=== PATIENT | male | born 1975 | race Caucasian/White ===

== ENCOUNTER 2019-09-21 14:16 | Emergency (ER) | payer OTHER ==
[~2019-09-21] VITALS: Ht 175.3 cm; Wt 81.6 kg
[2019-09-21 14:27] VITALS: BP 145/90
[2019-09-21 14:41] VITALS: BP 145/90
[2019-09-21] MEDS ORDERED: LIDOCAINE 1% VIAL ONE (14:54)
[2019-09-21] MEDS ORDERED: ADACEL VIAL IM ONE ×2 (15:24→15:30)
--- NOTE | 2019-09-21 15:24 | ER.PDOC ---
General Chief Complaint: Extremities Stated Complaint: LEFT HAND LAC Time seen by MD: 15:00 Source: patient Exam Limitations: no limitations History of Present Illness Initial Comments Pt states the top of his right hand was cut today on a piece of metal in a trash can one hour ago. Occurred: just prior to arrival Where: other Severity: moderate Modifying Factors: pain on movement Past Medical History Medical History: no pertinent history Surgical History: no surgical history Family History Significant Family History: other Social History Smoking: non-smoker Alcohol Use: none Drug Use: none Review of Systems Constitutional: no symptoms reported EENTM: no symptoms reported Respiratory: no symptoms reported Cardiovascular: no symptoms reported Gastrointestinal: no symptoms reported Genitourinary: no symptoms reported Musculoskeletal: no symptoms reported Skin: see HPI Psychiatric/Neurological: no symptoms reported All Other Systems: Reviewed and Negative Physical Exam General Appearance: Alert, Mild Distress Hand: see diagram Wrist: nml inspection, non-tender, nml ROM Forearm/Elbow: nml inspection, non-tender, nml ROM Arm/Shoulder: nml inspection, non-tender, nml ROM 1 - 2 cm laceration right hand dorsum side Neuro/Vasc/Tendon: sensation nml, motor nml, no vascular compromise Skin: warm/dry Head/ENT: nml inspection, pharynx nml Neck/Back: nml inspection, non-tender Respiratory: chest non-tender, breath sounds nml CVS: heart sounds normal Abdomen: non-tender, no organomegaly ED LACERATION WOUND REPAIR # of Wounds/Lacerations Presen: 1 Wound Location & Length (Requi: right hand dorsum side 2 cm Wound Length (cm): 2 Wound cleaned: hibiclens Anesthesia type: local Anesthesia: 1% Lidocaine Volume Anesthetic (ccs): 2 Wound's Depth, Shape: through and through Wound Explored: clean Tendon Intact: Yes Wound Debrided: moderate Wound Repaired With: sutures Suture Size/Type: 4:0, prolene Suture Style: interupted Number of Sutures: 5 Layer Closure?: Yes Sterile Dressing Applied?: Yes Results/Orders Results/Orders Orders - BEATRIZ CHOWDARY [employer] Diph,Pertuss(Acell),Tet Vac/Pf (Adacel V (09/21/19 15:30) Vital Signs Date Time Temp Pulse Resp B/P (MAP) Pulse Ox O2 Delivery O2 Flow Rate FiO2 09/21/19 15:35 98.5 77 16 96 09/21/19 14:41 98.5 89 16 96 09/21/19 14:41 98.5 89 16 96 09/21/19 14:27 98.5 89 16 96 09/21/19 14:27 98.5 89 16 Administered Medications Medications (Trade) Dose Ordered Sig/Tiffany Route PRN Reason Start Time Stop Time Status Last Admin Dose Admin Diphtheria/ Tetanus/Acell Pertussis (Adacel Vial) 0.5 ml ONCE ONCE IM 09/21/19 15:30 09/21/19 15:31 DC 09/21/19 15:25 0.5 ML Departure Time of Disposition: 15:45 Disposition: 01 HOME, SELF-CARE Impression: Primary Impression: Laceration of right hand Condition: Stable Patient Instructions: Laceration Care, Adult Referrals: PCP,UNKNOWN (PCP) PRIMARY CARE PROVIDER Additional Instructions: Return if symptoms worsen, See PCP as needed. Removed sutures 7-10 days. Keflex 500 mg one tablet twice a day x 7 days 14 #. If area becomes red, warm, draining, and or swollen or any other signs of infection return to the ER [facility] or PCP Duration or Time Spent with Pa: 18 minutes Problem Qualifiers Primary Impression: Laceration of right hand Encounter type: initial encounter Foreign body presence: without foreign body Qualified Codes: S61.411A - Laceration without foreign body of right hand, initial encounter BEATRIZ CHOWDARY [employer] September 21, 2019 15:24
[2019-09-21 15:35] VITALS: BP 121/82
== END 2019-09-21 15:35 | disposition home or self-care (01) ==
LOC: ER 14:16
DX: S61.411A Laceration without foreign body of right hand, initial encounter (principal); W26.8XXA Contact with other sharp object(s), not elsewhere classified, initial encounter; Y93.89 Activity, other specified; Y92.89 Other specified places as the place of occurrence of the external cause; Y99.8 Other external cause status
CPT/HCPCS: 12001; 90471; 90715; 99283; J2001